=== PATIENT | female | born 1990 | race Caucasian/White ===

== ENCOUNTER 2025-06-14 10:51 | Inpatient (IN) | payer MEDICAID ==
[~2025-06-14] VITALS: Ht 160 cm; Wt 92.6 kg
[~2025-06-14 10:51] MED LIST: NALT50TA33 PO; OLAN5TAB94 PO
[2025-06-14] MEDS ORDERED: MAG HYDROX/ALUMINUM HYD/SIMETH ES 30 ML SUSPENSION UDCUP PO PRN (12:00)
[2025-06-14] MEDS ORDERED: ACETAMINOPHEN 325 MG TABLET PO PRN (12:00)
[2025-06-14] MEDS ORDERED: LOPERAMIDE HCL 2 MG CAPSULE PO PRN (12:00)
[2025-06-14] MEDS ORDERED: GuaiFENesin/D-METHORPHAN [SUGAR-FREE] 200-20MG/10 ML SYRUP UDCUP PO PRN (12:00)
[2025-06-14] MEDS ORDERED: LURASIDONE HCL 20 MG TABLET PO PRN (12:00)
[2025-06-14] MEDS ORDERED: PROMETHAZINE HCL 25 MG TABLET PO PRN (12:00)
[2025-06-14] MEDS ORDERED: MAGNESIUM HYDROXIDE SUSPENSION 30 ML UDCUP PO PRN (12:00)
[2025-06-14] MEDS ORDERED: ZOLPIDEM TARTRATE 10 MG TABLET PO PRN (12:00)
[2025-06-14 12:55] LABS: GLUCOMETER DEV NAME(LOC) POC.BV; POC SARS-COV2 AG, FIA NEGATIVE (NEGATIVE)
[2025-06-14 13:32] VITALS: BP 128/81; PULSE 89; RESP 18; TEMP 98.3; O2SAT 98
[2025-06-14] MEDS: THIAMINE 100 MG TABLET PO SCH (16:40)
[2025-06-14] MEDS: LURASIDONE HCL 20 MG TABLET PO SCH (16:41)
[2025-06-14] MEDS: MELATONIN 5 MG TABLET PO SCH (20:05)
[2025-06-14 20:11] VITALS: BP 117/76; PULSE 79; RESP 18; TEMP 98.2; O2SAT 98
[2025-06-15 08:07] LABS: PLATELET COUNT (AUTO) 291 K/uL (150-450); RED BLOOD CELL COUNT(AUTO) 3.86 MIL/uL (4.00-5.20); RED CELL DISTRIBUTION WIDTH 14.7 % (11.5-14.5); WHITE BLOOD COUNT (AUTO) 6.5 K/uL (4.5-11.0)
[2025-06-15 08:33] VITALS: BP 104/66; PULSE 62; RESP 17; TEMP 98.4; O2SAT 100
[2025-06-15 08:37] LABS: CHOL/HDL RATIO 2.2 (3.9-5.7); LDL CHOL (CALC.) 51.0 mg/dL (0-130)
[2025-06-15 08:44] LABS: ASPARTATE AMINOTRANSFERASE 44 U/L (15-37); CALCIUM, TOTAL 8.5 mg/dL (8.8-10.5); CREATININE 0.66 mg/dL (0.60-1.30); GLOMERULAR FILTR. RATE CALC > 60 mL/min (>60); GLUCOSE,RANDOM 106 mg/dL (70-110); HCG,QUANTITATIVE < 1 mIU/mL (0-6); SODIUM SERUM 141 mmol/L (136-145); TOTAL PROTEIN, SERUM 6.3 g/dL (6.4-8.2); UREA NITROGEN, BLOOD 12 mg/dL (7-18)
[2025-06-15] MEDS: NALTREXONE HCL 50 MG TABLET PO SCH (09:48)
[2025-06-15] MEDS: MULTIVITAMINS WITH MINERALS, THERAPEUTIC TABLET PO SCH (09:48)
[2025-06-15] MEDS: FOLIC ACID 1 MG TABLET PO SCH (09:48)
[2025-06-15 17:53] VITALS: BP 100/68; PULSE 68; RESP 18; TEMP 97.2; O2SAT 99
[2025-06-15 20:35] VITALS: BP 110/65; PULSE 72; RESP 17; TEMP 97.8; O2SAT 98
[2025-06-16 08:17] LABS: PH,URINE DRUG SCREEN 5.5 (5.0-8.0)
[2025-06-16 08:28] LABS: ALCOHOL, URINE DRUG SCREEN NEGATIVE (NEGATIVE); AMPHET/METH SCREEN,URINE NEGATIVE (NEGATIVE); BARBITURATE SCREEN, URINE NEGATIVE (NEGATIVE); CANNABINOID SCREEN,URINE POSITIVE (NEGATIVE); COCAINE SCREEN,URINE NEGATIVE (NEGATIVE); METHADONE SCREEN, URINE NEGATIVE (NEGATIVE)
[2025-06-16 12:49] VITALS: BP 110/70; PULSE 64; RESP 18; TEMP 97.4; O2SAT 98
[2025-06-16 20:56] VITALS: BP 111/68; PULSE 74; RESP 18; TEMP 97.5; O2SAT 96
[2025-06-17 08:50] VITALS: BP 112/68; PULSE 63; RESP 15; TEMP 97.7; O2SAT 100
[2025-06-17 20:08] VITALS: BP 120/72; PULSE 82; RESP 18; TEMP 98; O2SAT 99
[2025-06-18 08:26] VITALS: BP 116/68; PULSE 65; RESP 19; TEMP 98.6; O2SAT 98
[2025-06-18] MEDS: LURASIDONE HCL 40 MG TABLET PO SCH (17:09)
[2025-06-18 20:07] VITALS: BP 117/72; PULSE 68; RESP 18; TEMP 97.9; O2SAT 100
[2025-06-19 08:23] VITALS: BP 130/80; PULSE 88; RESP 18; TEMP 98.4; O2SAT 100
[2025-06-19] MEDS: LURASIDONE HCL 60 MG TABLET PO SCH (17:00)
[2025-06-19 21:12] VITALS: BP 105/62; PULSE 69; RESP 18; TEMP 98.6; O2SAT 99
[2025-06-20 09:30] VITALS: RESP 18
[2025-06-20 20:20] VITALS: BP 105/58; PULSE 56; RESP 17; TEMP 97.9; O2SAT 98
[2025-06-21] MEDS: DULoxetine HCL 20 MG CAPSULE PO SCH (08:09)
[2025-06-21 09:30] VITALS: BP 115/97; PULSE 96; RESP 18; TEMP 97.3; O2SAT 99
[2025-06-21 21:00] VITALS: BP 116/97; PULSE 79; RESP 17; TEMP 97.6; O2SAT 99
[2025-06-22 08:36] VITALS: BP 112/64; PULSE 82; RESP 18; TEMP 97.5; O2SAT 100
[2025-06-22] MEDS: DULoxetine HCL 30 MG CAPSULE PO SCH (09:20)
[2025-06-22 20:14] VITALS: BP 112/69; PULSE 65; RESP 18; TEMP 98; O2SAT 98
[2025-06-23 08:42] VITALS: BP 127/81; PULSE 64; RESP 18; TEMP 97.7; O2SAT 99
[2025-06-23 20:22] VITALS: BP 116/72; PULSE 68; RESP 18; TEMP 97.9; O2SAT 100
[2025-06-24 08:29] VITALS: BP 118/84; PULSE 66; RESP 17; TEMP 97.7; O2SAT 97
[2025-06-24] MEDS: LURASIDONE HCL 80 MG TABLET PO SCH (16:45)
[2025-06-24 20:26] VITALS: BP 109/66; PULSE 67; RESP 18; TEMP 98.4; O2SAT 99
[2025-06-25 08:20] VITALS: BP 123/87; PULSE 72; RESP 17; TEMP 97.3; O2SAT 100
[2025-06-25] MEDS ORDERED: DULO30CA62 PO (11:49)
[2025-06-25] MEDS ORDERED: LURA80TA2 PO (11:49)
[2025-06-25] MEDS ORDERED: MELA5TAB40 PO (11:49)
== END 2025-06-25 14:00 | disposition home or self-care (01) | DRG 750 ==
LOC: B2S 13:33
PROVIDERS: ADMIT Psychiatry & Neurology Psychiatry; ATTEND Psychiatry & Neurology Psychiatry
PROC: GZHZZZZ Group Psychotherapy (ICD-10-PCS; principal; 2025-06-14)
PROC: GZ58ZZZ Individual Psychotherapy, Cognitive-Behavioral (ICD-10-PCS; 2025-06-14)
PROC: GZ56ZZZ Individual Psychotherapy, Supportive (ICD-10-PCS; 2025-06-18)
DX: F25.0 Schizoaffective disorder, bipolar type (principal); G93.41 Metabolic encephalopathy; E66.9 Obesity, unspecified; F41.9 Anxiety disorder, unspecified; Z20.822 Contact with and (suspected) exposure to COVID-19; J44.9 Chronic obstructive pulmonary disease, unspecified; Z60.8 Other problems related to social environment; Z55.9 Problems related to education and literacy, unspecified; Z63.9 Problem related to primary support group, unspecified; Z86.16 Personal history of COVID-19; Z59.00 Homelessness unspecified; Z65.3 Problems related to other legal circumstances; Z90.49 Acquired absence of other specified parts of digestive tract; Z56.0 Unemployment, unspecified; F12.10 Cannabis abuse, uncomplicated; Z68.35 Body mass index [BMI] 35.0-35.9, adult
CPT/HCPCS: 80053; 80061; 80307; 83036; 84439; 84443; 84702; 84703; 85025; 87081